=== PATIENT | female | born 1950 | race Caucasian/White ===

== ENCOUNTER → 2021-06-29 | Outpatient (CLI) | payer MEDICARE, OTHER ==
--- NOTE | 2021-06-29 15:03 | Diagnostic Imaging Report ---
CLINICAL INDICATION: Patient with right knee pain. No known injury. Exam: X-ray of the right knee, 3 views. COMPARISON: None. FINDINGS: Right total knee arthroplasty is seen in good position with no complications. There is no acute fracture dislocation. There are amorphous calcifications seen posterior and anterior to the knee. Loose bodies cannot be completely excluded. There are hypertrophic spurs involving the patella. IMPRESSION: 1: There is no acute fracture. 2: Right total knee arthroplasty is seen with no complications. 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 Loose bodies cannot be completely excluded. Dictated by: Dictated on workstation # [id number]
== END ==
LOC: RAD FS 09:43
PROVIDERS: ATTEND Nurse Practitioner
DX: M17.11 Unilateral primary osteoarthritis, right knee (principal); Z96.651 Presence of right artificial knee joint
CPT/HCPCS: 73562